=== PATIENT | male | born 1960 | race Hispanic/Latino ===

== ENCOUNTER 2021-08-10 13:23 | Inpatient (IN) | payer OTHER ==
[~2021-08-10] VITALS: Ht 167.6 cm; Wt 83.5 kg
[2021-08-10 13:48] LABS: BASOPHILS % (AUTO) 0.3 % (0.0-5.0); EOSINOPHILS % (AUTO) 1.7 % (0.0-8.0); HEMATOCRIT 37.3 % (42-54); LYMPHOCYTES % (AUTO) 16.3 % (21.0-51.0); MEAN CORPUSCULAR HEMOGLOBIN 30.5 pg (27.0-33.0); MEAN CORPUSCULAR VOLUME 92.6 fL (79-99); MONOCYTES % (AUTO) 6.3 % (3.0-13.0); PLATELET COUNT (AUTO) 172 K/uL (130-400); RED BLOOD CELL COUNT(AUTO) 4.03 MIL/uL (4.50-6.20); RED CELL DISTRIBUTION WIDTH 12.1 % (11.0-15.5); WHITE BLOOD COUNT (AUTO) 9.4 K/uL (4.8-10.8)
[2021-08-10 13:58] LABS: CREATININE 1.2 mg/dL (0.5-1.5); POTASSIUM 3.7 mmol/L (3.5-5.1)
[2021-08-10 14:02] LABS: BILIRUBIN,TOTAL 0.6 mg/dL (0.2-1.0); TOTAL PROTEIN, SERUM 6.9 g/dL (6.0-8.3)
[2021-08-10 15:10] LABS: APPEARANCE,URINE Clear (CLEAR); BILIRUBIN,URINE Negative (NEGATIVE); COLOR,URINE Dark Yellow (YELLOW); GLUCOSE, URINE (UA) Negative (NEGATIVE); KETONES,URINE Negative (NEGATIVE); LEUKOCYTE ESTERASE ,URINE Trace (NEGATIVE); NITRATE,URINE Negative (NEGATIVE); OCCULT BLOOD,URINE Negative (NEGATIVE); PH,URINE 6.5 (5.0-8.0); PROTEIN,URINE Trace mg/dL (NEGATIVE)
[2021-08-10 15:17] LABS: AMPHET/METH SCREEN,URINE NEGATIVE (NEGATIVE); BARBITURATE SCREEN, URINE NEGATIVE (NEGATIVE); BENZODIAZEPINES SCREEN,URINE NEGATIVE (NEGATIVE); CANNABINOID SCREEN,URINE NEGATIVE (NEGATIVE); COCAINE SCREEN,URINE NEGATIVE (NEGATIVE); OPIATE SCREEN,URINE NEGATIVE (NEGATIVE); PHENCYCLIDINE SCREEN,URINE NEGATIVE (NEGATIVE)
[2021-08-10 15:29] LABS: BACTERIA,URINE Rare /HPF (None Seen); RBC,URINE None Seen /HPF (0-1); SQUAMOUS EPITHELIAL CELL,UR None Seen /HPF (0-2); WBC,URINE 0-1 /HPF (0-1)
[2021-08-10] MEDS ORDERED: IOHEXOL-350 75 ML VIAL IV ONE (15:48)
[2021-08-10] MEDS ORDERED: HEPARIN 5,000 UNIT VIAL SQ PRN (16:30)
[2021-08-10] MEDS ORDERED: HEPARIN 25,000 UNITS/250ML D5W 250 ML IV SCH (16:30)
[2021-08-10 16:56] LABS: INR 1.02 (0.85-1.15); PROTHROMBIN TIME 11.1 SEC (9.6-11.6)
[2021-08-10 16:57] LABS: PARTIAL THROMBOPLASTIN TIME 27.2 SEC (26.3-35.5)
[2021-08-10 18:13] LABS: INR 1.04 (0.85-1.15); PROTHROMBIN TIME 11.3 SEC (9.6-11.6)
[2021-08-10 18:14] LABS: PARTIAL THROMBOPLASTIN TIME 26.8 SEC (26.3-35.5)
[2021-08-11 02:06] LABS: INR 1.07 (0.85-1.15); PROTHROMBIN TIME 11.6 SEC (9.6-11.6)
[2021-08-11 02:08] LABS: PARTIAL THROMBOPLASTIN TIME 67.3 SEC (26.3-35.5)
[2021-08-11 08:38] LABS: INR 1.07 (0.85-1.15); PROTHROMBIN TIME 11.6 SEC (9.6-11.6)
[2021-08-11 08:39] LABS: PARTIAL THROMBOPLASTIN TIME 61.1 SEC (26.3-35.5)
[2021-08-11] MEDS ORDERED: HEPARIN 25,000 UNITS/250ML D5W 250 ML IV SCH (10:30)
[2021-08-11] MEDS ORDERED: MORPHINE 2 MG SYG IV PRN (10:30)
[2021-08-11] MEDS ORDERED: LACTULOSE 20 GM/30 ML UDCUP PO PRN (10:30)
[2021-08-11] MEDS ORDERED: ONDANSETRON 4MG INJ IV PRN (10:30)
[2021-08-11] MEDS ORDERED: ACETAMINOPHEN 325 MG TAB PO PRN ×2 (10:30)
[2021-08-11] MEDS ORDERED: MORPHINE 4 MG SYG IV PRN (10:30)
[2021-08-11 13:00] VITALS: BP 131/74
[2021-08-11 16:00] VITALS: BP 133/87
[2021-08-11] MEDS: ENOXAPARIN SODIUM 80 MG/0.8 ML SQ SCH (16:04)
[2021-08-11 19:12] VITALS: BP 137/82
[2021-08-11] MEDS: FAMOTIDINE 20MG VIAL IV SCH (21:53)
[2021-08-12 00:12] VITALS: BP 123/78
[2021-08-12 03:12] VITALS: BP 132/74
[2021-08-12 04:04] LABS: BASOPHILS % (AUTO) 0.5 % (0.0-5.0); EOSINOPHILS % (AUTO) 4.3 % (0.0-8.0); HEMATOCRIT 38.6 % (42-54); LYMPHOCYTES % (AUTO) 23.7 % (21.0-51.0); MEAN CORPUSCULAR HEMOGLOBIN 30.9 pg (27.0-33.0); MEAN CORPUSCULAR HGB CONC 33.7 g/dL (32.0-36.0); MEAN CORPUSCULAR VOLUME 91.7 fL (79-99); MONOCYTES % (AUTO) 5.6 % (3.0-13.0); NEUTROPHILS % (AUTO) 65.5 % (40.0-77.0); PLATELET COUNT (AUTO) 208 K/uL (130-400); RED BLOOD CELL COUNT(AUTO) 4.21 MIL/uL (4.50-6.20); RED CELL DISTRIBUTION WIDTH 11.9 % (11.0-15.5); WHITE BLOOD COUNT (AUTO) 7.9 K/uL (4.8-10.8)
[2021-08-12 04:21] LABS: ALBUMIN 2.8 g/dL (3.5-5.0); BILIRUBIN,TOTAL 0.5 mg/dL (0.2-1.0); PHOSPHORUS 3.4 mg/dL (2.5-4.9); TOTAL PROTEIN, SERUM 6.9 g/dL (6.0-8.3)
[2021-08-12] MEDS: ENOXAPARIN SODIUM 80 MG/0.8 ML SQ SCH ×2 (04:41→17:37)
[2021-08-12 08:00] VITALS: BP 117/71
[2021-08-12] MEDS: FAMOTIDINE 20MG VIAL IV SCH ×2 (08:35→20:30)
[2021-08-12 12:00] VITALS: BP 119/64
[2021-08-12 16:00] VITALS: BP 122/72
[2021-08-12] MEDS: WARFARIN SODIUM 5 MG TAB PO SCH (17:37)
[2021-08-12] MEDS ORDERED: ACETAMINOPHEN WITH CODEINE 1 TAB TAB PO PRN ×2 (18:30)
[2021-08-12] MEDS ORDERED: LACTULOSE 20 GM/30 ML UDCUP PO ONE (18:30)
[2021-08-12 19:15] VITALS: BP 128/74
[2021-08-12] MEDS: BISACODYL 5 MG TABLET.DR PO SCH (20:30)
[2021-08-13 00:15] VITALS: BP 108/56
[2021-08-13 03:15] VITALS: BP 111/62
[2021-08-13] MEDS: ENOXAPARIN SODIUM 80 MG/0.8 ML SQ SCH ×2 (06:14→16:08)
[2021-08-13 08:50] VITALS: BP 107/67
[2021-08-13] MEDS: FAMOTIDINE 20MG VIAL IV SCH ×2 (08:53→21:19)
[2021-08-13] MEDS: BISACODYL 5 MG TABLET.DR PO SCH ×2 (08:53→21:19)
[2021-08-13 09:29] LABS: INR 1.05 (0.85-1.15); PROTHROMBIN TIME 11.4 SEC (9.6-11.6)
[2021-08-13 12:07] VITALS: BP 119/73
[2021-08-13] MEDS: WARFARIN SODIUM 5 MG TAB PO SCH (16:09)
[2021-08-13 16:49] VITALS: BP 120/78
[2021-08-13 20:00] VITALS: BP 108/71
[2021-08-14] VITALS: BP 104/65
[2021-08-14 04:05] VITALS: BP 111/67
[2021-08-14] MEDS: ENOXAPARIN SODIUM 80 MG/0.8 ML SQ SCH ×2 (05:56→16:36)
[2021-08-14 06:38] LABS: BASOPHILS % (AUTO) 0.5 % (0.0-5.0); EOSINOPHILS % (AUTO) 4.9 % (0.0-8.0); HEMATOCRIT 39.4 % (42-54); MEAN CORPUSCULAR HEMOGLOBIN 30.2 pg (27.0-33.0); MEAN CORPUSCULAR HGB CONC 33.2 g/dL (32.0-36.0); MEAN CORPUSCULAR VOLUME 90.8 fL (79-99); MONOCYTES % (AUTO) 5.9 % (3.0-13.0); NEUTROPHILS % (AUTO) 57.5 % (40.0-77.0); PLATELET COUNT (AUTO) 249 K/uL (130-400); RED BLOOD CELL COUNT(AUTO) 4.34 MIL/uL (4.50-6.20); RED CELL DISTRIBUTION WIDTH 11.8 % (11.0-15.5); WHITE BLOOD COUNT (AUTO) 5.8 K/uL (4.8-10.8)
[2021-08-14 06:49] LABS: INR 1.1 (0.85-1.15); PROTHROMBIN TIME 11.9 SEC (9.6-11.6)
[2021-08-14 07:15] LABS: CREATININE 1.3 mg/dL (0.5-1.5); POTASSIUM 4.5 mmol/L (3.5-5.1)
[2021-08-14 07:30] VITALS: BP 110/64
[2021-08-14] MEDS: FAMOTIDINE 20MG VIAL IV SCH (10:11)
[2021-08-14] MEDS: BISACODYL 5 MG TABLET.DR PO SCH (10:11)
[2021-08-14 11:25] VITALS: BP 115/67
[2021-08-14 15:25] VITALS: BP 129/69
[2021-08-14] MEDS ORDERED: WARFARIN SODIUM 5 MG TAB PO SCH (17:00)
[2021-08-14 19:00] VITALS: BP 112/67
[2021-08-14] MEDS: FAMOTIDINE 20MG TAB PO SCH (21:10)
[2021-08-15] VITALS: BP 122/71
[2021-08-15] MEDS: ENOXAPARIN SODIUM 80 MG/0.8 ML SQ SCH ×2 (03:46→17:32)
[2021-08-15 04:00] VITALS: BP 113/60
[2021-08-15 06:17] LABS: BASOPHILS % (AUTO) 0.8 % (0.0-5.0); EOSINOPHILS % (AUTO) 4.5 % (0.0-8.0); HEMATOCRIT 40.1 % (42-54); LYMPHOCYTES % (AUTO) 32.6 % (21.0-51.0); MEAN CORPUSCULAR HEMOGLOBIN 30.4 pg (27.0-33.0); MEAN CORPUSCULAR HGB CONC 33.7 g/dL (32.0-36.0); MEAN CORPUSCULAR VOLUME 90.3 fL (79-99); MONOCYTES % (AUTO) 5.1 % (3.0-13.0); NEUTROPHILS % (AUTO) 56.8 % (40.0-77.0); PLATELET COUNT (AUTO) 267 K/uL (130-400); RED BLOOD CELL COUNT(AUTO) 4.44 MIL/uL (4.50-6.20); WHITE BLOOD COUNT (AUTO) 5.1 K/uL (4.8-10.8)
[2021-08-15 06:24] LABS: CREATININE 1.3 mg/dL (0.5-1.5); POTASSIUM 4.9 mmol/L (3.5-5.1)
[2021-08-15 07:04] LABS: INR 1.38 (0.85-1.15); PROTHROMBIN TIME 14.8 SEC (9.6-11.6)
[2021-08-15 07:47] VITALS: BP 106/68
[2021-08-15] MEDS: FAMOTIDINE 20MG TAB PO SCH ×2 (09:00→21:00)
[2021-08-15 11:59] VITALS: BP 106/67
[2021-08-15 16:06] VITALS: BP 111/72
[2021-08-15] MEDS ORDERED: WARFARIN SODIUM 10 MG TABLET PO SCH (17:00)
[2021-08-15] MEDS ORDERED: PHARMACY COMMUNICATION MISC SCH (17:30)
[2021-08-15 19:55] VITALS: BP 114/75
[2021-08-16 00:07] VITALS: BP 109/64
[2021-08-16 04:47] VITALS: BP 101/61
[2021-08-16 04:54] LABS: INR 1.88 (0.85-1.15); PROTHROMBIN TIME 19.8 SEC (9.6-11.6)
[2021-08-16] MEDS: ENOXAPARIN SODIUM 80 MG/0.8 ML SQ SCH (04:55)
[2021-08-16] MEDS: FAMOTIDINE 20MG TAB PO SCH (07:57)
[2021-08-16 08:29] VITALS: BP 104/55
[2021-08-16 09:37] LABS: INR 2.04 (0.85-1.15); PROTHROMBIN TIME 21.4 SEC (9.6-11.6)
[2021-08-16 12:00] VITALS: BP 112/67
[2021-08-16] MEDS ORDERED: WARF-67 PO (12:09)
== END 2021-08-16 15:15 | disposition home or self-care (01) | DRG 176 ==
LOC: EDH 13:23 → EDHIP 13:24 → 2DH 08-11 12:30
PROVIDERS: ADMIT Internal Medicine; ATTEND Internal Medicine
DX: I26.99 Other pulmonary embolism without acute cor pulmonale (principal); I82.431 Acute embolism and thrombosis of right popliteal vein; E83.51 Hypocalcemia; D72.810 Lymphocytopenia; E88.09 Other disorders of plasma-protein metabolism, not elsewhere classified; Z20.822 Contact with and (suspected) exposure to COVID-19; E87.6 Hypokalemia; K40.90 Unilateral inguinal hernia, without obstruction or gangrene, not specified as recurrent; Z82.49 Family history of ischemic heart disease and other diseases of the circulatory system; E78.5 Hyperlipidemia, unspecified; I10 Essential (primary) hypertension; I95.9 Hypotension, unspecified
CPT/HCPCS: 36415; 70450; 71045; 71275; 74176; 80048; 80053; 80305; 81001; 81241; 82948; 83735; 83880; 84100; 84145; 84484; 85025; 85220; 85300; 85303; 85305; 85306; 85610; 85730; 85732; 87635; 93005; 93306; 93970; 99291; C9803; G0378; J1644; J1650; J3490; Q9967

== ENCOUNTER 2021-09-06 01:33 | Inpatient (IN) | payer OTHER ==
[~2021-09-06] VITALS: Ht 167.6 cm; Wt 87.5 kg
[~2021-09-06 01:33] MED LIST: WARF-67 PO
[2021-09-06 02:06] LABS: APPEARANCE,URINE Clear (CLEAR); BASOPHILS % (AUTO) 0.3 % (0.0-5.0); BILIRUBIN,URINE Negative (NEGATIVE); COLOR,URINE Yellow (YELLOW); EOSINOPHILS % (AUTO) 2.1 % (0.0-8.0); GLUCOSE, URINE (UA) Negative (NEGATIVE); HEMATOCRIT 38.9 % (42-54); KETONES,URINE Negative (NEGATIVE); LEUKOCYTE ESTERASE ,URINE Negative (NEGATIVE); LYMPHOCYTES % (AUTO) 17.8 % (21.0-51.0); MEAN CORPUSCULAR HEMOGLOBIN 30.4 pg (27.0-33.0); MEAN CORPUSCULAR HGB CONC 33.4 g/dL (32.0-36.0); MEAN CORPUSCULAR VOLUME 90.9 fL (79-99); MONOCYTES % (AUTO) 5.5 % (3.0-13.0); NEUTROPHILS % (AUTO) 74.1 % (40.0-77.0); NITRATE,URINE Negative (NEGATIVE); OCCULT BLOOD,URINE Large (NEGATIVE); PLATELET COUNT (AUTO) 180 K/uL (130-400); PROTEIN,URINE Trace mg/dL (NEGATIVE); RED BLOOD CELL COUNT(AUTO) 4.28 MIL/uL (4.50-6.20); WHITE BLOOD COUNT (AUTO) 8.8 K/uL (4.8-10.8)
[2021-09-06 02:14] LABS: CREATININE 1.2 mg/dL (0.5-1.5); POTASSIUM 3.9 mmol/L (3.5-5.1)
[2021-09-06 02:15] LABS: BACTERIA,URINE None Seen /HPF (None Seen); SQUAMOUS EPITHELIAL CELL,UR Rare /HPF (0-2); WBC,URINE 0-1 /HPF (0-1)
[2021-09-06 02:19] LABS: ALBUMIN 3.4 g/dL (3.5-5.0); BILIRUBIN,TOTAL 0.4 mg/dL (0.2-1.0); TOTAL PROTEIN, SERUM 7.8 g/dL (6.0-8.3)
[2021-09-06] MEDS ORDERED: KETOROLAC 30MG VIAL (30MG/ML) IVP ONE (02:30)
[2021-09-06] MEDS ORDERED: 0.9%NACL 1000ML 1,000 ML IV ONE (02:30)
[2021-09-06 03:15] LABS: PARTIAL THROMBOPLASTIN TIME 75.6 SEC (26.3-35.5)
[2021-09-06 03:25] LABS: INR > 7.00 (0.85-1.15)
[2021-09-06] MEDS ORDERED: PHYTONADIONE 10 MG in 0.9%NACL 50ML 50 ML IVPB ONE (04:30)
[2021-09-06] MEDS ORDERED: ONDANSETRON 4MG INJ IV PRN (04:30)
[2021-09-06] MEDS ORDERED: ACETAMINOPHEN 325 MG TAB PO PRN (04:30)
[2021-09-06] MEDS ORDERED: PHYTONADIONE 10 MG/1 ML AMP ONE (04:32)
[2021-09-06 08:46] VITALS: BP 142/90
[2021-09-06] MEDS: FAMOTIDINE 20MG VIAL IV SCH ×2 (09:00→21:00)
[2021-09-06 10:41] LABS: INR 2.1 (0.85-1.15); PROTHROMBIN TIME 21.9 SEC (9.6-11.6)
[2021-09-06 10:43] LABS: PARTIAL THROMBOPLASTIN TIME 37.9 SEC (26.3-35.5)
[2021-09-06 12:35] VITALS: BP 132/86
[2021-09-06 16:30] VITALS: BP 120/80
[2021-09-06 19:50] VITALS: BP 131/76
[2021-09-06 23:34] VITALS: BP 131/84
[2021-09-07] VITALS (7 sets, daily range): BP systolic 97–130; BP diastolic 48–89
[2021-09-07 04:49] LABS: BASOPHILS % (AUTO) 0.4 % (0.0-5.0); EOSINOPHILS % (AUTO) 4.9 % (0.0-8.0); HEMATOCRIT 36.1 % (42-54); LYMPHOCYTES % (AUTO) 30.1 % (21.0-51.0); MEAN CORPUSCULAR HEMOGLOBIN 30.4 pg (27.0-33.0); MEAN CORPUSCULAR HGB CONC 33.5 g/dL (32.0-36.0); MEAN CORPUSCULAR VOLUME 90.7 fL (79-99); MONOCYTES % (AUTO) 5.4 % (3.0-13.0); NEUTROPHILS % (AUTO) 58.9 % (40.0-77.0); PLATELET COUNT (AUTO) 158 K/uL (130-400); RED BLOOD CELL COUNT(AUTO) 3.98 MIL/uL (4.50-6.20); RED CELL DISTRIBUTION WIDTH 12.1 % (11.0-15.5); WHITE BLOOD COUNT (AUTO) 7.8 K/uL (4.8-10.8)
[2021-09-07 05:03] LABS: INR 1.26 (0.85-1.15); PROTHROMBIN TIME 13.6 SEC (9.6-11.6)
[2021-09-07 05:04] LABS: PARTIAL THROMBOPLASTIN TIME 30.8 SEC (26.3-35.5)
[2021-09-07 05:09] LABS: MAGNESIUM 1.9 mg/dL (1.80-2.40); PHOSPHORUS 3.7 mg/dL (2.5-4.9); POTASSIUM 4.4 mmol/L (3.5-5.1)
[2021-09-07] MEDS: FAMOTIDINE 20MG VIAL IV SCH ×2 (09:00→20:58)
[2021-09-07] MEDS ORDERED: WARFARIN SODIUM 5 MG TAB PO SCH (12:00)
[2021-09-07] MEDS ORDERED: NITROGLYCERIN 50MG/D5W 250ML 1 BOT ONE (13:05)
[2021-09-07] MEDS ORDERED: NITROGLYCERIN 1GM OINT 1 INCH/1GM TD ONE (13:26)
[2021-09-07] MEDS ORDERED: NITROGLYCERIN 50MG/D5W 250ML 250 BOT IV SCH (13:30)
[2021-09-07] MEDS ORDERED: NITROGLYCERIN 0.4 MG SL TAB SL PRN (13:30)
[2021-09-07] MEDS ORDERED: ACETAMINOPHEN 500 MG TABLET PO PRN (13:30)
[2021-09-07] MEDS: NITROGLYCERIN 1GM OINT 1 INCH/1GM TD SCH ×2 (13:56→20:58)
[2021-09-07 14:12] LABS: CREATINE KINASE, TOTAL 66 U/L (21-232); MYOGLOBIN 27 ng/mL (10-92)
[2021-09-07] MEDS ORDERED: MORPHINE 2 MG SYG IVP PRN ×2 (14:30)
[2021-09-08 03:23] VITALS: BP 95/52
[2021-09-08 04:04] LABS: BASOPHILS % (AUTO) 0.4 % (0.0-5.0); EOSINOPHILS % (AUTO) 3.4 % (0.0-8.0); HEMATOCRIT 36.5 % (42-54); MEAN CORPUSCULAR HEMOGLOBIN 30.4 pg (27.0-33.0); MEAN CORPUSCULAR HGB CONC 32.9 g/dL (32.0-36.0); MEAN CORPUSCULAR VOLUME 92.4 fL (79-99); MONOCYTES % (AUTO) 5.2 % (3.0-13.0); NEUTROPHILS % (AUTO) 69.7 % (40.0-77.0); PLATELET COUNT (AUTO) 177 K/uL (130-400); RED BLOOD CELL COUNT(AUTO) 3.95 MIL/uL (4.50-6.20); RED CELL DISTRIBUTION WIDTH 12.1 % (11.0-15.5); WHITE BLOOD COUNT (AUTO) 9.1 K/uL (4.8-10.8)
[2021-09-08 04:19] LABS: INR 1.38 (0.85-1.15); PROTHROMBIN TIME 14.8 SEC (9.6-11.6)
[2021-09-08 04:25] LABS: BILIRUBIN,TOTAL 0.8 mg/dL (0.2-1.0); CREATININE 1.2 mg/dL (0.5-1.5); POTASSIUM 4.2 mmol/L (3.5-5.1); TOTAL PROTEIN, SERUM 6.4 g/dL (6.0-8.3)
[2021-09-08] MEDS: NITROGLYCERIN 1GM OINT 1 INCH/1GM TD SCH (05:30)
[2021-09-08 07:40] VITALS: BP 115/57
[2021-09-08 07:43] VITALS: BP 91/56
[2021-09-08] MEDS: FAMOTIDINE 20MG VIAL IV SCH (09:13)
[2021-09-08] MEDS ORDERED: WARFARIN SODIUM 5 MG TAB PO SCH (10:00)
[2021-09-08] MEDS ORDERED: WARF-67 PO (10:01)
== END 2021-09-08 11:30 | disposition home or self-care (01) | DRG 392 ==
LOC: EDH 01:33 → EDHIP 01:34 → 2DH 06:31
PROVIDERS: ADMIT Internal Medicine; ATTEND Internal Medicine
DX: R10.9 Unspecified abdominal pain (principal); D68.59 Other primary thrombophilia; N13.30 Unspecified hydronephrosis; T45.515A Adverse effect of anticoagulants, initial encounter; N40.0 Benign prostatic hyperplasia without lower urinary tract symptoms; K57.30 Diverticulosis of large intestine without perforation or abscess without bleeding; K40.90 Unilateral inguinal hernia, without obstruction or gangrene, not specified as recurrent; Z20.822 Contact with and (suspected) exposure to COVID-19; Y92.89 Other specified places as the place of occurrence of the external cause; Z59.00 Homelessness unspecified; Z86.711 Personal history of pulmonary embolism; Z79.01 Long term (current) use of anticoagulants
CPT/HCPCS: 36415; 71045; 74176; 80048; 80053; 81001; 82550; 83690; 83735; 83874; 84100; 84484; 85025; 85610; 85730; 86850; 86900; 86901; 87635; 93005; G0378; J1885; J3430; J3490; J7030